=== PATIENT | female | born 1980 | race Caucasian/White ===

== ENCOUNTER → 2022-09-02 | Outpatient (CLI) | payer MEDICARE, MEDICAID | END | disposition home or self-care (01) | LOC: MAMMO 08-31 10:30 | PROVIDERS: ATTEND Nurse Practitioner Women's Health | DX: Z12.31 Encounter for screening mammogram for malignant neoplasm of breast (principal) ==

== ENCOUNTER → 2022-10-02 | Outpatient (CLI) | payer MEDICARE, MEDICAID | END | disposition home or self-care (01) | LOC: RAD 01:00 | PROVIDERS: ATTEND Nurse Practitioner Women's Health | DX: Z79.3 Long term (current) use of hormonal contraceptives (principal) ==

== ENCOUNTER → 2022-10-06 | Outpatient (CLI) | payer MEDICARE, MEDICAID | END | disposition home or self-care (01) | LOC: US 03:30 | PROVIDERS: ATTEND Nurse Practitioner Women's Health | DX: N63.24 Unspecified lump in the left breast, lower inner quadrant (principal) ==